=== PATIENT | female | born 2000 | race Caucasian/White ===

== ENCOUNTER → 2024-01-20 17:14 | Outpatient (CLI) | payer OTHER, BC, SELFPAY ==
--- NOTE | 2024-01-20 17:16 | DI.RAD.S_ITS ---
PROCEDURE: XR LUMBAR SPINE MIN 4V INDICATIONS: Back pain, lumbar radiculopathy, back muscle spasms TECHNIQUE: 5 views of the lumbar spine acquired, including flexion and extension views. COMPARISON: None. FINDINGS: Bones: 5 nonrib-bearing vertebrae are present. Straightening of lumbar lordosis. No spondylolisthesis. Moderate disc height loss at L5-S1 with associated mild degenerative endplate changes. No vertebral body compression fractures. No suspicious bony lesions. Soft tissues: Overlying bowel gas pattern is normal. No suspicious soft tissue calcifications. Flexion/extension: There is limited range of motion, with preserved alignment. IMPRESSION: Moderate disc height loss at L5-S1, may represent disc herniation. Limited range of motion. Dictated by: Bryant Morton M.D. on 01/21/2024 at 8:47 Approved by: Bryant Morton M.D. on 01/21/2024 at 8:48
== END ==
PROVIDERS: Referring Provider Physician Assistant Surgical; Visit Provider Physician Assistant Surgical
DX: M54.50 Low back pain, unspecified (principal)
CPT/HCPCS: 72110